=== PATIENT | female | born 1985 | race American Indian/Alaskan Native ===

== ENCOUNTER 2017-02-22 08:01 | Emergency (ER) | payer SELFPAY ==
[2017-02-22 08:19] VITALS: BP 121/84
[2017-02-22] MEDS ORDERED: MOTRIN PO ONE (10:40)
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
== END 2017-02-22 11:41 | disposition home or self-care (01) ==
LOC: ED 08:01
DX: M62.838 Other muscle spasm (principal); M25.511 Pain in right shoulder; V49.40XA Driver injured in collision with unspecified motor vehicles in traffic accident, initial encounter; Y93.89 Activity, other specified; Y99.8 Other external cause status; Y92.89 Other specified places as the place of occurrence of the external cause
CPT/HCPCS: 99284

== ENCOUNTER 2017-04-15 07:35 | Emergency (ER) | payer SELFPAY ==
[2017-04-15 08:23] LABS: Hematocrit 34.6 % (30.3-42.9); Hemoglobin 11.3 gm/dl (10.1-14.3); Mean Corpuscular HGB Conc 33 % (30-34); Mean Corpuscular Hemoglobin 28 pg (28-32); Mean Corpuscular Volume 86 fl (79-97); Platelet Count 235 K/mm3 (140-440); Red Blood Count 4.02 M/mm3 (3.65-5.03); White Blood Count 6.3 K/mm3 (4.5-11.0)
[2017-04-15 08:39] LABS: Alanine Aminotransferase 10 units/L (7-56); Albumin 3.9 g/dL (3.9-5); Albumin/Globulin Ratio 1.2 %; Alkaline Phosphatase 98 units/L (35-129); Anion Gap 17 mmol/L; BUN/Creatinine Ratio 14.28; Blood Urea Nitrogen 10 mg/dL (7-17); Carbon Dioxide 23 mmol/L (22-30); Chloride 101.7 mmol/L (98-107); Glucose 88 mg/dL (65-100); Lipase 29 units/L (13-60); Potassium 3.6 mmol/L (3.6-5.0); Sodium 138 mmol/L (137-145); Total Protein 7.2 g/dL (6.3-8.2)
[2017-04-15 09:15] LABS: Blastocytes % (Manual) 0 %
[2017-04-15 09:16] LABS: Basophils % (Manual) 0 % (0.0-1.8); Diff Status Complete; RBC Morphology Normal
[2017-04-15 13:34] LABS: Bacteria,Urine 2+ /HPF (Negative); Bilirubin,Urine NEG (Negative); Blood,Urine NEG (Negative); Ketones,Urine NEG (Negative); Leukocyte Esterase,Urine LG (Negative); Mucus,Urine 1+ /HPF; Nitrite,Urine NEG (Negative); Protein,Urine <15 mg/dL mg/dL (Negative); Urobilinogen,Urine < 2.0 mg/dL (<2.0)
[2017-04-15 14:29] VITALS: BP 109/62
[2017-04-15] MEDS ORDERED: TORADOL IM ONE (16:44)
--- NOTE | 2017-04-15 16:45 | Emergency Department Report ---
ED General Adult HPI - General Chief complaint: Abdominal Pain Stated complaint: BURNING PAIN IN STOMACH/DIZZY Time Seen by Provider: 04/15/17 16:25 Source: patient, RN notes reviewed Mode of arrival: Ambulatory Limitations: No Limitations - History of Present Illness Initial comments: This is a 32-year-old female. She is previously unknown to me. She has no chronic medical conditions. No history of surgeries. The patient presents to the ER with 2 complaints. The patient's first complaint is abdominal burning. The abdominal burning pain is located in the suprapubic and left lower quadrant region. There is no vomiting. There is mild nausea. There is no right lower quadrant pain. The pain has been present for 2 weeks. It is intermittent. Has no exacerbating or relieving factors, with the exception of palpation, which the patient reports makes it worse. She indicates no vaginal discharge, indicates that she is not . There is no leg pain. There is no leg swelling. No recent trips greater than 4 hours. No recent Hospital patient. Does not take control tablets. The patient also complains to dizziness. The dizziness has been present for weeks. It typically comes when she wakes up. She reports that when she wakes up, she sits up quite quickly, and then feels like the room is spinning around. There is no loss of vision. There is no slurred speech. There is no extremity weakness. There is no extremity numbness. This dizziness sensation is intermittent. -: Gradual Location: abdomen Severity scale (0 -10): 8 Consistency: intermittent Improves with: other (per hpi) Worsens with: other (per hpi) Associated Symptoms: other (per hpi) - Related Data Allergies Allergy/AdvReac Type Severity Reaction Status Date / Time No Known Allergies Allergy Verified 02/22/17 08:15 ED Review of Systems ROS: Stated complaint: BURNING PAIN IN STOMACH/DIZZY Other details as noted in HPI Constitutional: denies: fever Eyes: denies: vision change ENT: denies: throat pain, epistaxis, congestion Respiratory: denies: cough Cardiovascular: denies: chest pain Gastrointestinal: abdominal pain Genitourinary: as per HPI Musculoskeletal: as per HPI Skin: as per HPI Neurological: as per HPI Psychiatric: as per HPI ED Past Medical Hx - Past Medical History Previous Medical History?: No Hx Hypertension: No Hx Diabetes: No Hx Deep Vein Thrombosis: No Hx Renal Disease: No Hx Sickle Cell Disease: No Hx Seizures: No Hx Asthma: No Hx HIV: No - Surgical History Past Surgical History?: No - Social History Smoking Status: Never Smoker Substance Use Type: None ED Physical Exam - General Limitations: No Limitations General appearance: alert, in no apparent distress - Head Head exam: Present: atraumatic, normocephalic - Eye Eye exam: Present: normal appearance, PERRL, EOMI, other (visual acuity intact to finger counting, color perception, reading at a close distance). Absent: nystagmus - ENT ENT exam: Present: normal exam, normal orophraynx, mucous membranes moist, normal external ear exam - Neck Neck exam: Present: normal inspection, full ROM. Absent: tenderness, meningismus - Respiratory Respiratory exam: Present: normal lung sounds bilaterally. Absent: respiratory distress, wheezes, rales, rhonchi, stridor, chest wall tenderness, accessory muscle use, decreased breath sounds, prolonged expiratory - Cardiovascular Cardiovascular Exam: Present: regular rate, normal rhythm, normal heart sounds. Absent: bradycardia, tachycardia, irregular rhythm, systolic murmur, diastolic murmur, rubs, gallop - GI/Abdominal GI/Abdominal exam: Present: soft, tenderness, normal bowel sounds, other (there is minimal left lower quadrant tenderness. There is no rebound, guarding or peritoneal signs.). Absent: distended, guarding, rebound, rigid, pulsatile mass - Extremities Exam Extremities exam: Present: normal inspection, full ROM, normal capillary refill. Absent: tenderness, pedal edema, joint swelling, calf tenderness - Back Exam Back exam: Present: normal inspection, full ROM. Absent: tenderness, CVA tenderness (R), CVA tenderness (L), muscle spasm, paraspinal tenderness, vertebral tenderness - Neurological Exam Neurological exam: Present: alert (visual acuity intact to finger counting, color perception, reading at a close distance), oriented X3, normal gait ( normal gait, normal tandem gait, negative pronator drift, no pass pointing, normal [id number]), other (Extraocular movements intact. Tongue midline. No facial droop. Facial sensation intact to light touch in the V1, V2, V3 distribution bilaterally. 5 and 5 strength in 4 extremities.. Sensation is intact to light touch in 4 extremities.). Absent: motor sensory deficit - Psychiatric Psychiatric exam: Present: normal affect, normal mood - Skin Skin exam: Present: warm, dry, intact, normal color. Absent: rash ED Course Vital Signs 04/15/17 04/15/17 08:03 14:28 Temperature 98.1 F Pulse Rate 86 72 Respiratory 16 16 Rate Blood Pressure 125/80 Blood Pressure 125/80 109/62 [Right] O2 Sat by Pulse 100 99 Oximetry - Reevaluation(s) Reevaluation #1: 04/15/17 17:43 differential diagnosis: Ovarian cysts, constipation, orthostasis , vagal event, conduction defect Assessment and plan: 32-year-old female with 2 complaints. Minimally tender in the left lower quadrant afebrile, reassuring vital signs, no right lower quadrant pain. Not . Laboratory studies unremarkable. I recommended a gynecologic examination. Patient walks in the steady gait, GCS of 15, NIH score of 0, no pulmonary and lesser DVT risk factors, low risk by well's criteria, perc negative. I recommended an EKG. The patient eloped from the ER prior to the completion of her evaluation. she was called, nobody answered. 04/15/17 17:44 ED Medical Decision Making - Lab Data Result diagrams: 04/15/17 08:09 04/15/17 08:09 Vital Signs 04/15/17 04/15/17 08:03 14:28 Temperature 98.1 F Pulse Rate 86 72 Respiratory 16 16 Rate Blood Pressure 125/80 Blood Pressure 125/80 109/62 [Right] O2 Sat by Pulse 100 99 Oximetry Labs 04/15/17 04/15/17 04/15/17 08:09 08:09 13:19 WBC 6.3 RBC 4.02 Hgb 11.3 Hct 34.6 MCV 86 MCH 28 MCHC 33 RDW 16.0 H Plt Count 235 Add Manual Diff Complete Total Counted 100 Seg Neutrophils % Stamping Bench Die Maker Seg Neuts % (Manual) 31.0 L Band Neutrophils % 0 Lymphocytes % (Manual) 63.0 H Reactive Lymphs % (Man) 0 Monocytes % (Manual) 5.0 Eosinophils % (Manual) 1.0 Basophils % (Manual) 0 Metamyelocytes % 0 Myelocytes % 0 Promyelocytes % 0 Blast Cells % 0 Nucleated RBC % Not Reportable Seg Neutrophils # Man 2.0 Band Neutrophils # 0.0 Lymphocytes # (Manual) 4.0 Abs React Lymphs (Man) 0.0 Monocytes # (Manual) 0.3 Eosinophils # (Manual) 0.1 Basophils # (Manual) 0.0 Metamyelocytes # 0.0 Myelocytes # 0.0 Promyelocytes # 0.0 Blast Cells # 0.0 WBC Morphology Not Reportable Hypersegmented Neuts Not Reportable Hyposegmented Neuts Not Reportable Hypogranular Neuts Not Reportable Smudge Cells Not Reportable Toxic Granulation Not Reportable Toxic Vacuolation Not Reportable Dohle Bodies Not Reportable Pelger-Huet Anomaly Not Reportable Enmanuel Rods Not Reportable Platelet Estimate Appears normal Clumped Platelets Not Reportable Plt Clumps, EDTA Not Reportable Large Platelets Not Reportable Giant Platelets Not Reportable Platelet Satelliting Not Reportable Plt Morphology Comment Not Reportable RBC Morphology Normal Dimorphic RBCs Not Reportable Polychromasia Not Reportable Hypochromasia Not Reportable Poikilocytosis Not Reportable Anisocytosis Not Reportable Microcytosis Not Reportable Macrocytosis Not Reportable Spherocytes Not Reportable Pappenheimer Bodies Not Reportable Sickle Cells Not Reportable Target Cells Not Reportable Tear Drop Cells Not Reportable Ovalocytes Not Reportable Helmet Cells Not Reportable [place] Bodies Not Reportable [place] Rings Not Reportable [place] Cells Not Reportable Bite Cells Not Reportable Crenated Cell Not Reportable Elliptocytes Not Reportable Acanthocytes (Spur) Not Reportable Rouleaux Not Reportable Hemoglobin C Crystals Not Reportable Schistocytes Not Reportable Malaria parasites Not Reportable Yuriy Bodies Not Reportable Hem Pathologist Commnt No Sodium 138 Potassium 3.6 Chloride 101.7 Carbon Dioxide 23 Anion Gap 17 BUN 10 Creatinine 0.7 Estimated GFR > 60 BUN/Creatinine Ratio 14.28 Glucose 88 Calcium 9.0 Total Bilirubin 0.20 AST 15 ALT 10 Alkaline Phosphatase 98 Total Protein 7.2 Albumin 3.9 Albumin/Globulin Ratio 1.2 Lipase 29 Urine Color Yellow Urine Turbidity Cloudy Urine pH 5.0 Ur Specific [place] 1.017 Urine Protein <15 mg/dl Urine Glucose (UA) Neg Urine Ketones Neg Urine Blood Neg Urine Nitrite Neg Ur Reducing Substances Not Reportable Urine Bilirubin Neg Urine Ictotest Not Reportable Urine Urobilinogen < 2.0 Ur Leukocyte Esterase Lg Urine WBC (Auto) 2.0 Urine RBC (Auto) 3.0 U Epithel Cells (Auto) 20.0 H Urine Bacteria (Auto) 2+ Urine Mucus 1+ Urine HCG, Qual Negative Critical care attestation.: If time is entered above; I have spent that time in minutes in the direct care of this critically ill patient, excluding procedure time. ED Disposition Clinical Impression: Abdominal pain Disposition: ELOPED Is pt being admited?: No Does the pt Need Aspirin: No Condition: Undetermined Instructions: Abdominal Pain (ED) Referrals: PRIMARY CARE, [Primary Care Provider] - 3-5 Days
== END 2017-04-15 16:30 | disposition left against medical advice (07) ==
LOC: ED 07:35
DX: R10.9 Unspecified abdominal pain (principal)
CPT/HCPCS: 36415; 80053; 81001; 81025; 83690; 85007; 85025; 99284

== ENCOUNTER 2018-01-27 07:21 | Emergency (ER) | payer MEDICAID ==
[2018-01-27 08:32] LABS: Basophils % (Auto) 0.7 % (0.0-1.8); Eosinophils % (Auto) 0.6 % (0.0-4.3); Hematocrit 33.7 % (30.3-42.9); Hemoglobin 11.5 gm/dl (10.1-14.3); Lymphocytes # (Auto) 1.7 K/mm3 (1.2-5.4); Lymphocytes % (Auto) 26.4 % (13.4-35.0); Mean Corpuscular HGB Conc 34 % (30-34); Mean Corpuscular Hemoglobin 31 pg (28-32); Mean Corpuscular Volume 91 fl (79-97); Monocytes # (Auto) 0.6 K/mm3 (0.0-0.8); Monocytes % (Auto) 9.3 % (0.0-7.3); Platelet Count 244 K/mm3 (140-440); Red Blood Count 3.72 M/mm3 (3.65-5.03); Red Cell Distribution Width 14.7 % (13.2-15.2)
[2018-01-27 08:44] LABS: Alanine Aminotransferase 7 units/L (7-56); Albumin 3.9 g/dL (3.9-5); BUN/Creatinine Ratio 12; Blood Urea Nitrogen 7 mg/dL (7-17); Calcium 9.5 mg/dL (8.4-10.2); Hemolysis Index 7; Lipase 34 units/L (13-60)
[2018-01-27 10:21] VITALS: BP 118/71
[2018-01-27] MEDS ORDERED: TYLENOL PO ONE (10:26)
[2018-01-27] MEDS ORDERED: ZOFRAN ODT PO ONE (11:25)
--- NOTE | 2018-01-27 11:28 | Ultrasound Report ---
ULTRASOUND OB LESS THAN 14 WEEKS FETUS ULTRASOUND OB TRANSVAGINAL HISTORY: Abdominal pain after fall, pain during . COMPARISON: None. TECHNIQUE: Transabdominal and transvaginal ultrasound with color doppler interrogation. FINDINGS: Uterus: The uterus measures 12 x 9 x 8 cm. No uterine fibroid disease is appreciated. The cervix is unremarkable. Endometrium: An intrauterine is identified with heart rate measuring 159 beats per minute. [place]-rump length measures 64 mm which correlates with a 12 week, 5 day . The placenta appears to be forming posteriorly. Small placental venous [place] is noted. No evidence for abruption or subchorionic process. Right ovary: 3.5 x 2.1 x 3.2 cm. No abnormality. Left ovary: 3.4 x 1.7 x 3.0 cm. No abnormality. No pelvic fluid or mass is identified. Normal color doppler interrogation. IMPRESSION: Viable, single intrauterine as described. No acute abnormality is detected.
--- NOTE | 2018-01-27 11:57 | Emergency Department Report ---
HPI - General Chief Complaint: Abdominal Pain Time Seen by Provider: 01/27/18 10:25 - HPI HPI: The patient is a 32-year-old female , EGA 12 weeks, who presents for evaluation of abdominal pain. The patient states that she fell down 3-4 steps after getting out of bed this morning at 5:30 AM. Since she has experienced mild to moderate cramping lower abdominal pain, worse with movement, improved at rest. The patient denies fever, chills, night sweats, headache, neck pain, chest pain, dyspnea, back pain, diarrhea, dysuria, hematuria, flank pain, vaginal bleeding, genital discharge, leakage of fluid from the vagina. She shares that she received a RhoGAM injection 2 weeks ago. ED Past Medical Hx - Past Medical History Previous Medical History?: No Hx Hypertension: No Hx Diabetes: No Hx Deep Vein Thrombosis: No Hx Renal Disease: No Hx Sickle Cell Disease: No Hx Seizures: No Hx Asthma: No Hx HIV: No - Surgical History Past Surgical History?: No - Social History Smoking Status: Never Smoker Substance Use Type: None - Medications Home Medications: Home Medications Medication Instructions Recorded Confirmed Last Taken Type Acetaminophen [Tylenol] 1,000 mg PO Q6HR #20 tablet 01/27/18 Unknown Rx Pnv No.95/Ferrous Fum/Folic AC 1 each PO QDAY #31 tablet 01/27/18 Unknown Rx [ Vitamin Tablet] ED Review of Systems ROS: Stated complaint: DIZZY SPELL Other details as noted in HPI Constitutional: denies: fever ENT: denies: throat or neck pain Respiratory: denies: cough, shortness of breath Cardiovascular: denies: chest pain Endocrine: denies unexplained weight loss or gain Gastrointestinal: reports: abdominal pain, nausea Genitourinary: denies: dysuria Musculoskeletal: denies: leg swelling Skin: denies: rash Neurological: denies: headache Hematological/Lymphatic: denies: easy bleeding or easy bruising Psych: denies sadness or hopelessness Physical Exam - Physical Exam Vital Signs: Vital Signs 01/27/18 01/27/18 01/27/18 08:07 09:58 10:16 Temperature 98.5 F Pulse Rate 66 72 Respiratory 16 16 18 Rate Blood Pressure 119/64 Blood Pressure 118/71 [Right] O2 Sat by Pulse 100 100 97 Oximetry Physical Exam: General: well-nourished, well-developed, no acute distress Head: Normocephalic, atraumatic Eyes: normal sclera ENT: Mucous membranes are pink and moist Neck: trachea midline, neck supple, No neck stiffness, no cervical adenopathy Respiratory: Breath sounds equal bilaterally, no wheezing, rales, or rhonchi Cardio: S1 and S2 present, no murmurs, rubs, gallops, capillary refill is brisk Abdomen: Normoactive bowel sounds, soft abdomen, suprapubic tenderness present, no rigidity, no guarding or rebound tenderness Musc: No pitting edema Skin: No rash Neuro: no facial drooping, normal speech Psych: Normal affect ED Course Vital Signs 01/27/18 01/27/18 01/27/18 08:07 09:58 10:16 Temperature 98.5 F Pulse Rate 66 72 Respiratory 16 16 18 Rate Blood Pressure 119/64 Blood Pressure 118/71 [Right] O2 Sat by Pulse 100 100 97 Oximetry ED Medical Decision Making - Lab Data Result diagrams: 01/27/18 08:18 01/27/18 08:18 - Medical Decision Making The patient was seen and examined by myself. The patient is placed on a patient monitor and continuous pulse ox. On initial evaluation, the patient was found to be in no distress. Evaluation orders are placed. The patient is given a tablet of Tylenol for her pain. Lab results were non-concerning including WBC, hemoglobin, hematocrit, renal function, LFTs, lipase, and urinalysis. Her son of the pelvis reveals a live intrauterine at 12 weeks and 5 days with normal heart rate. The patient was reevaluated and reported that their symptoms were markedly improved. The patient is stable for discharge with outpatient follow-up. The patient is given follow-up and return instructions. The patient expressed understanding and agreed with the plan. The patient is discharged in stable condition. Critical care attestation.: If time is entered above; I have spent that time in minutes in the direct care of this critically ill patient, excluding procedure time. ED Disposition Clinical Impression: Abdominal pain during in second trimester, Acute bilateral lower abdominal pain Disposition: TO HOME OR SELFCARE Is pt being admited?: No Does the pt Need Aspirin: No Condition: Stable Instructions: Abdominal Pain (ED), Abdominal Pain in (ED) Prescriptions: Acetaminophen [Tylenol] 1,000 mg PO Q6HR #20 tablet Pnv No.95/Ferrous Fum/Folic AC [ Vitamin Tablet] 1 each PO QDAY #31 tablet Referrals: [facility] [Provider Group] - 3-5 Days PRIMARY CARE, [Primary Care Provider] - 3-5 Days Time of Disposition: 11:57
== END 2018-01-27 13:42 | disposition home or self-care (01) ==
LOC: ED 07:21
DX: O26.891 Other specified pregnancy related conditions, first trimester (principal); R10.31 Right lower quadrant pain; R10.32 Left lower quadrant pain; Z3A.12 12 weeks gestation of pregnancy
CPT/HCPCS: 36415; 76801; 76817; 80053; 83690; 84702; 85025; 85461; 86850; 86870; 86900; 86901; 99284; Q0162

== ENCOUNTER 2018-03-18 11:17 | Outpatient (CLI) | payer MEDICAID ==
[2018-03-18] MEDS ORDERED: LACTATED RINGERS 1,000 ML IV ONE (11:49)
[2018-03-18 12:54] LABS: Bilirubin,Urine NEG (Negative); Blood,Urine NEG (Negative); Color,Urine Yellow (Yellow); Mucus,Urine FEW /HPF; Protein,Urine <15 mg/dL mg/dL (Negative); Urobilinogen,Urine < 2.0 mg/dL (<2.0)
[2018-03-18 13:10] LABS: Basophils % (Auto) 0.5 % (0.0-1.8); Eosinophils % (Auto) 0.6 % (0.0-4.3); Hematocrit 34.7 % (30.3-42.9); Hemoglobin 12.1 gm/dl (10.1-14.3); Lymphocytes # (Auto) 1.4 K/mm3 (1.2-5.4); Lymphocytes % (Auto) 21.2 % (13.4-35.0); Mean Corpuscular HGB Conc 35 % (30-34); Mean Corpuscular Hemoglobin 32 pg (28-32); Mean Corpuscular Volume 92 fl (79-97); Monocytes # (Auto) 0.3 K/mm3 (0.0-0.8); Monocytes % (Auto) 5.2 % (0.0-7.3); Platelet Count 236 K/mm3 (140-440); Red Blood Count 3.77 M/mm3 (3.65-5.03); Red Cell Distribution Width 13.3 % (13.2-15.2)
[2018-03-18 13:33] LABS: Alanine Aminotransferase 7 units/L (7-56); Albumin 3.9 g/dL (3.9-5); BUN/Creatinine Ratio 12; Blood Urea Nitrogen 6 mg/dL (7-17); Calcium 9.2 mg/dL (8.4-10.2); Hemolysis Index 37
[2018-03-18 21:07] VITALS: BP 112/68
== END 2018-03-18 14:48 | disposition home or self-care (01) ==
LOC: TRG 11:17
PROVIDERS: ATTEND Obstetrics & Gynecology
DX: O47.02 False labor before 37 completed weeks of gestation, second trimester (principal); Z3A.20 20 weeks gestation of pregnancy
CPT/HCPCS: 36415; 59025; 80053; 81001; 85025; 96360; 96372; J7120

== ENCOUNTER 2018-04-22 22:03 | Outpatient (CLI) | payer MEDICAID ==
[2018-04-22 22:33] VITALS: BP 113/66
[2018-04-22] MEDS ORDERED: LACTATED RINGERS 500 ML IV ONE (22:52)
[2018-04-22 23:31] LABS: Bilirubin,Urine NEG (Negative); Blood,Urine NEG (Negative); Color,Urine Yellow (Yellow); Hyaline Casts,Urine 1 /LPF; Mucus,Urine 2+ /HPF; Protein,Urine <15 mg/dL mg/dL (Negative)
== END 2018-04-23 00:15 | disposition home or self-care (01) ==
LOC: TRG 22:03
PROVIDERS: ATTEND Obstetrics & Gynecology
DX: O47.02 False labor before 37 completed weeks of gestation, second trimester (principal); Z3A.25 25 weeks gestation of pregnancy
CPT/HCPCS: 81001; J7120

== ENCOUNTER 2018-05-11 10:13 | Outpatient (CLI) | payer MEDICAID | END 2018-05-11 10:14 | disposition home or self-care (01) | LOC: LAB 10:13 | PROVIDERS: ATTEND Obstetrics & Gynecology | DX: Z34.93 Encounter for supervision of normal pregnancy, unspecified, third trimester (principal); Z3A.28 28 weeks gestation of pregnancy; Z82.49 Family history of ischemic heart disease and other diseases of the circulatory system; Z83.3 Family history of diabetes mellitus | CPT/HCPCS: 86850; 86900; 86901 ==

== ENCOUNTER 2018-06-09 00:09 | Outpatient (CLI) | payer MEDICAID ==
[2018-06-09 00:30] VITALS: BP 119/59
[2018-06-09] MEDS ORDERED: LACTATED RINGERS 1,000 ML IV ONE (00:35)
== END 2018-06-09 01:03 | disposition home or self-care (01) ==
LOC: TRG 00:09
PROVIDERS: ATTEND Obstetrics & Gynecology
DX: O47.03 False labor before 37 completed weeks of gestation, third trimester (principal); Z3A.32 32 weeks gestation of pregnancy
CPT/HCPCS: 59025

== ENCOUNTER 2018-06-13 11:40 | Outpatient (CLI) | payer MEDICAID ==
[2018-06-13] MEDS ORDERED: LACTATED RINGERS 500 ML IV ONE (11:48)
[2018-06-13] MEDS ORDERED: ZOFRAN IV ONE (11:54)
[2018-06-13] MEDS ORDERED: LACTATED RINGERS 1,000 ML IV ONE (11:54)
--- NOTE | 2018-06-13 12:49 | Ultrasound Report ---
ULTRASOUND BIOPHYSICAL PROFILE: History: GEOVANNI, decreased movement Technique: Transabdominal ultrasound with Doppler interrogation. 2 - breathing movements 2 - movements 2 - posture and tone 2 - Qualitative amniotic fluid volume 8 - TOTAL SCORE OF POSSIBLE 8 Heart Rate (bpm) 147
--- NOTE | 2018-06-13 12:50 | Ultrasound Report ---
ULTRASOUND OB LIMITED History: GEOVANNI, decreased movement Technique: Transabdominal ultrasound with Doppler interrogation. Gestation: Single Position: Cephalic Amniotic Fluid: Normal GEOVANNI = 18.9 cm Heart Rate: 147 BPM
[2018-06-13 15:09] VITALS: BP 115/55
== END 2018-06-13 15:20 | disposition home or self-care (01) ==
LOC: TRG 11:40
PROVIDERS: ATTEND Obstetrics & Gynecology
DX: O47.03 False labor before 37 completed weeks of gestation, third trimester (principal); Z3A.32 32 weeks gestation of pregnancy
CPT/HCPCS: 59025; 76815; 76819; 85461; 86850; 86900; 86901; J2790

== ENCOUNTER 2018-07-11 14:08 | Outpatient (CLI) | payer MEDICAID ==
[2018-07-11 14:53] VITALS: BP 118/68
[2018-07-11] MEDS ORDERED: LACTATED RINGERS 500 ML IV ONE (15:02)
[2018-07-11] MEDS ORDERED: ZOFRAN IV ONE (15:04)
[2018-07-11 16:23] LABS: Color,Urine Yellow (Yellow)
[2018-07-11 16:24] LABS: Bilirubin,Urine Negative (Negative); Blood,Urine Negative (Negative); Protein,Urine <15 mg/dL mg/dL (Negative); Urobilinogen,Urine < 2.0 mg/dL (<2.0)
[2018-07-11 16:27] LABS: Mucus,Urine FEW /HPF
[2018-07-11 17:39] LABS: Hematocrit 29.4 % (30.3-42.9); Hemoglobin 9.9 gm/dl (10.1-14.3); Mean Corpuscular HGB Conc 34 % (30-34); Mean Corpuscular Hemoglobin 31 pg (28-32); Mean Corpuscular Volume 92 fl (79-97); Red Blood Count 3.19 M/mm3 (3.65-5.03); Red Cell Distribution Width 13.2 % (13.2-15.2)
[2018-07-11 17:44] LABS: Platelet Count 250 K/mm3 (140-440)
[2018-07-11 18:00] LABS: Alanine Aminotransferase 9 units/L (7-56); Albumin 3.6 g/dL (3.9-5); BUN/Creatinine Ratio 10; Blood Urea Nitrogen 5 mg/dL (7-17); Calcium 9.6 mg/dL (8.4-10.2); Hemolysis Index 23
[2018-07-11] MEDS ORDERED: PHENERGAN PR ONE (19:12)
--- NOTE | 2018-07-11 20:10 | Ultrasound Report ---
FINAL REPORT PROCEDURE: US ABDOMEN LIMITED TECHNIQUE: Real-time sonography was performed of the right upper quadrant with image documentation. CPT 39732 HISTORY: N/V COMPARISON: No prior studies are available for comparison. FINDINGS: Exam of the right upper quadrant is limited due to limited acoustic window due to the patient's ribs. There appears to be some reverberation artifact posterior aspect of the gallbladder. No definite gallstones or sludge visualized. Gallbladder wall is not thickened. Common bile duct is normal caliber measuring 2.8 millimeters. Intrahepatic ducts are not distended. Liver echogenicity appears normal. No masses are seen. Right kidney showed no abnormalities measuring 9.9 centimeters in length. Visualized portion of the pancreas showed no abnormalities. Proximal abdominal aorta appear normal. Mid and distal abdominal aorta was not visualized. Visualized portion of the inferior vena cava is unremarkable.. IMPRESSION: No abnormalities are identified
[2018-07-11 20:16] LABS: Eosinophils % (Manual) 0 % (0.0-4.3); Total Cells Counted 100
[2018-07-11 20:18] LABS: Large Platelets 1+
[2018-07-11 20:19] LABS: Anisocytosis 1+; Ovalocytes Rare; Platelet Estimate Consistent w Auto
[2018-07-11] MEDS ORDERED: REGLAN IV ONE (20:32)
[2018-07-11] MEDS ORDERED: LACTATED RINGERS 1,000 ML ONE (20:46)
== END 2018-07-11 21:35 | disposition home or self-care (01) ==
LOC: TRG 14:08
PROVIDERS: ATTEND Obstetrics & Gynecology
DX: O47.03 False labor before 37 completed weeks of gestation, third trimester (principal); Z3A.36 36 weeks gestation of pregnancy
CPT/HCPCS: 36415; 59025; 76705; 80053; 81001; 85007; 85025; 96360; 96361; 96374; 96375; J2405; J2765; J7120

== ENCOUNTER 2019-07-05 19:34 | Emergency (ER) | payer MEDICAID, OTHER ==
--- NOTE | 2019-07-05 20:07 | Event Note ---
ED Screening Note Date of service: 07/05/19 Time: 20:05 ED Screening Note: This is a 34 y.o. F. that presents to the ER with vaginal bleeding and abdominal pain s/p fall at work. Patient states she is 4 weeks LMP 05/31/2019, [id number] This initial assessment/diagnostic orders/clinical plan/treatment(s) is/are subject to change based on patients health status, clinical progression and re- assessment by fellow clinical providers in the ED. Further treatment and workup at subsequent clinical providers discretion. Patient/guardian urged not to elope from the ED as their condition may be serious if not clinically assessed and managed. Initial orders include: Labs and OB US
[2019-07-05 20:38] LABS: Hematocrit 30.6 % (30.3-42.9); Hemoglobin 10.6 gm/dl (10.1-14.3); Mean Corpuscular HGB Conc 35 % (30-34); Mean Corpuscular Volume 86 fl (79-97); Platelet Count 274 K/mm3 (140-440); Red Blood Count 3.55 M/mm3 (3.65-5.03); Red Cell Distribution Width 16.1 % (13.2-15.2)
[2019-07-05 20:51] LABS: Basophils # (Auto) 0.1 K/mm3 (0.0-0.1); Basophils % (Auto) 0.8 % (0.0-1.8); Eosinophils % (Auto) 0.7 % (0.0-4.3); Lymphocytes # (Auto) 2.3 K/mm3 (1.2-5.4); Lymphocytes % (Auto) 36.8 % (13.4-35.0); Monocytes # (Auto) 0.5 K/mm3 (0.0-0.8); Monocytes % (Auto) 8.3 % (0.0-7.3)
[2019-07-05 21:15] LABS: Bacteria,Urine 1+ /HPF (Negative); Bilirubin,Urine NEG (Negative); Blood,Urine LG (Negative); Color,Urine Yellow (Yellow); Mucus,Urine FEW /HPF
--- NOTE | 2019-07-05 23:04 | Emergency Department Report ---
ED Female HPI - General Stated complaint: FALL/4 WEEKS PREG/SPOTTING Time Seen by Provider: 07/05/19 20:04 Source: patient Mode of arrival: Ambulatory Limitations: No Limitations - History of Present Illness Initial comments: Patient is a 34-year-old female presents with today complaining of vaginal spotting that began today. Patient says she was at work she fell on the abdomen so she came in the 80s to be evaluated. She states last miss her period was 05/31/2019. Patient's states that she went [facility] office this to get her test which was positive. She denies abdominal pain, abdominal cramping, dysuria, vaginal discharge or any other symptoms MD Complaint: vaginal bleeding - Related Data Previous Rx's Medication Instructions Recorded Last Taken Type Ferrous Sulfate [Feosol 325 MG tab] 325 mg PO BID #60 tablet 07/22/18 Unknown Rx HYDROcodone/ACETAMINOPHEN [[place] 1 each PO Q6H PRN #20 tablet 07/22/18 Unknown Rx 5-325 Tablet] Ibuprofen [Motrin] 800 mg PO Q8HR PRN #30 tablet 07/22/18 Unknown Rx Nitrofurantoin [place]/M-Cryst 100 mg PO Q12HR #14 capsule 07/05/19 Unknown Rx [Macrobid CAP] Allergies Allergy/AdvReac Type Severity Reaction Status Date / Time No Known Allergies Allergy Verified 06/13/18 11:47 ED Review of Systems ROS: Stated complaint: FALL/4 WEEKS PREG/SPOTTING Other details as noted in HPI Comment: All other systems reviewed and negative ED Past Medical Hx - Past Medical History Previous Medical History?: No Hx Hypertension: No Hx Congestive Heart Failure: No Hx Diabetes: No Hx Deep Vein Thrombosis: No Hx Renal Disease: No Hx Sickle Cell Disease: No Hx Seizures: No Hx Asthma: No Hx COPD: No Hx HIV: No - Surgical History Past Surgical History?: No - Social History Smoking Status: Never Smoker Substance Use Type: None - Medications Home Medications: Home Medications Medication Instructions Recorded Confirmed Last Taken Type Ferrous Sulfate [Feosol 325 MG tab] 325 mg PO BID #60 tablet 07/22/18 Unknown Rx HYDROcodone/ACETAMINOPHEN [[place] 1 each PO Q6H PRN #20 tablet 07/22/18 Unknown Rx 5-325 Tablet] Ibuprofen [Motrin] 800 mg PO Q8HR PRN #30 tablet 07/22/18 Unknown Rx Nitrofurantoin [place]/M-Cryst 100 mg PO Q12HR #14 capsule 07/05/19 Unknown Rx [Macrobid CAP] ED Physical Exam - General Limitations: No Limitations General appearance: alert, in no apparent distress - Head Head exam: Present: atraumatic, normocephalic - Eye Eye exam: Present: normal appearance - ENT ENT exam: Present: mucous membranes moist - Neck Neck exam: Present: normal inspection - Respiratory Respiratory exam: Present: normal lung sounds bilaterally. Absent: respiratory distress - Cardiovascular Cardiovascular Exam: Present: regular rate, normal rhythm. Absent: systolic murmur, diastolic murmur, rubs, gallop - GI/Abdominal GI/Abdominal exam: Present: soft, normal bowel sounds - Extremities Exam Extremities exam: Present: normal inspection - Back Exam Back exam: Present: normal inspection - Neurological Exam Neurological exam: Present: alert, oriented X3 - Psychiatric Psychiatric exam: Present: normal affect, normal mood - Skin Skin exam: Present: warm, dry, intact, normal color. Absent: rash ED Medical Decision Making - Lab Data Result diagrams: 07/05/19 20:18 Laboratory Results - last 24 hr 07/05/19 07/05/19 07/05/19 20:18 20:18 20:18 WBC 5.9 RBC 3.55 L Hgb 10.6 Hct 30.6 MCV 86 MCH 30 MCHC 35 H RDW 16.1 H Plt Count 274 Lymph % (Auto) 36.8 H Ada % (Auto) 8.3 H Eos % (Auto) 0.7 Baso % (Auto) 0.8 Lymph # 2.3 Ada # 0.5 Eos # 0.0 Baso # 0.1 Seg Neutrophils % 53.4 Seg Neutrophils # 3.3 HCG, Qual Negative HCG, Quant 1.24 Urine Color Urine Turbidity Urine pH Ur Specific [place] Urine Protein Urine Glucose (UA) Urine Ketones Urine Blood Urine Nitrite Urine Bilirubin Urine Urobilinogen Ur Leukocyte Esterase Urine WBC (Auto) Urine RBC (Auto) U Epithel Cells (Auto) Urine Bacteria (Auto) Urine Mucus Blood Type 07/05/19 07/05/19 20:18 20:50 WBC RBC Hgb Hct MCV MCH MCHC RDW Plt Count Lymph % (Auto) Ada % (Auto) Eos % (Auto) Baso % (Auto) Lymph # Ada # Eos # Baso # Seg Neutrophils % Seg Neutrophils # HCG, Qual HCG, Quant Urine Color Yellow Urine Turbidity Cloudy Urine pH 6.0 Ur Specific [place] 1.029 Urine Protein 100 mg/dl Urine Glucose (UA) Neg Urine Ketones Neg Urine Blood Lg Urine Nitrite Neg Urine Bilirubin Neg Urine Urobilinogen 2.0 Ur Leukocyte Esterase Tr Urine WBC (Auto) 10.0 H Urine RBC (Auto) 64.0 U Epithel Cells (Auto) 17.0 H Urine Bacteria (Auto) 1+ Urine Mucus Few Blood Type B NEGATIVE - Radiology Data Radiology results: report reviewed - Medical Decision Making 34-year-old female who presents with a UTI. test was and beta Quant level was negative less than 2. I discussed his findings with the patient and discussed with her that her test was negative. I discussed with her that this may be her cycle, and the vaginal spotting. I discussed her to follow-up with [facility] within the week for further testing. Vital signs are normal patient is in no acute distress. Critical care attestation.: If time is entered above; I have spent that time in minutes in the direct care of this critically ill patient, excluding procedure time. ED Disposition Clinical Impression: UTI (urinary tract infection) Disposition: DC-01 TO HOME OR SELFCARE Is pt being admited?: No Does the pt Need Aspirin: No Condition: Stable Instructions: Urinary Tract Infection in Women (ED) Additional Instructions: Make sure to follow up with the primary care physician as discussed. Take all your medications as you've been prescribed. If you have any worsening symptoms or develop new symptoms please return to ED immediately. Prescriptions: Nitrofurantoin [place]/M-Cryst [Macrobid CAP] 100 mg PO Q12HR #14 capsule Referrals: EPI BORGES MD [Primary Care Provider] - 3-5 Days [facility] [Provider Group] - 3-5 Days Forms: Work/School Release Form(ED) Time of Disposition: 23:05
[2019-07-05 23:21] VITALS: BP 141/82
== END 2019-07-05 23:34 | disposition home or self-care (01) ==
LOC: ED 19:34
DX: N93.9 Abnormal uterine and vaginal bleeding, unspecified (principal); N39.0 Urinary tract infection, site not specified
CPT/HCPCS: 36415; 81001; 84702; 84703; 85025; 86900; 86901; 87086

== ENCOUNTER 2019-10-13 11:15 | Observation (INO) | payer MEDICAID ==
[2019-10-13] MEDS ORDERED: ONDANSETRON 4 MG/2 ML INJ IV PRN (12:06)
[2019-10-13] MEDS: METOCLOPRAMIDE 10 MG/2 ML INJ IV SCH ×2 (12:50→20:26)
[2019-10-13] MEDS: D5W/LACTATED RINGERS 1,000 ML IV SCH ×3 (12:51→20:26)
[2019-10-13] MEDS ORDERED: POTASSIUM CHLORIDE 10 MEQ 10 MEQ/100 ML BAG IV SCH (13:00)
[2019-10-13] MEDS: PROMETHAZINE 25 MG RECT SUPP PR SCH ×2 (13:54→20:26)
[2019-10-13 14:19] LABS: Basophils % (Auto) 0.5 % (0.0-1.8); Eosinophils % (Auto) 0.5 % (0.0-4.3); Hematocrit 29.1 % (30.3-42.9); Hemoglobin 9.9 gm/dl (10.1-14.3); Lymphocytes # (Auto) 1.5 K/mm3 (1.2-5.4); Lymphocytes % (Auto) 34.7 % (13.4-35.0); Mean Corpuscular HGB Conc 34 % (30-34); Mean Corpuscular Volume 86 fl (79-97); Monocytes # (Auto) 0.3 K/mm3 (0.0-0.8); Monocytes % (Auto) 7.2 % (0.0-7.3); Platelet Count 241 K/mm3 (140-440); Red Blood Count 3.38 M/mm3 (3.65-5.03); Red Cell Distribution Width 16.4 % (13.2-15.2)
[2019-10-13 14:42] LABS: BUN/Creatinine Ratio 13; Blood Urea Nitrogen 8 mg/dL (7-17); Hemolysis Index 0
[2019-10-13 15:11] LABS: Hepatitis B Surface Antigen Non-Reactive (Negative); Hepatitis C Virus Antibody Non-Reactive (NonReactive)
--- NOTE | 2019-10-13 16:04 | Ultrasound Report ---
OB ultrasound FINDINGS: There is a viable intrauterine with crown-rump length measurements corresponding to an MA of 9 weeks 5 days for an EDC of 05/12/2020. This correlates with the clinical dates. he art rate is 181 bpm. Gestational sac appears normal. There is no subchorionic hemorrhage. Right ovary is not seen. Left ovary contains a complex cyst measuring 1.5 x 1.3 x 1.2 cm. No free fluid or hemor rhage. Uterus is heterogeneous perhaps due to fibroids. IMPRESSION: Viable 9 week 5 day IUP Signer Name: Benito Claudio MD Signed: 10/13/2019 3:59 PM Workstation Name: [id number]
--- NOTE | 2019-10-13 20:15 | History and Physical Report ---
History of Present Illness Date of examination: 10/13/19 Date of admission: 10/13/19 11:45 Chief complaint: nausea, vomiting, inability to tolerate water History of present illness: Pt is a 34 year old -[place] female EDUARDO 05/09/20 at 10w1d who presents with lisa loss and persistent nausea and vomiting for the past week with inability to tolerate water. She recently initiated care at [facility]. Past History Past Medical History: hematologic disorders (anemia , Rh Negative ), other Past Surgical History: no surgical history [employer] History: abnormal PAP smear (HPV ), herpes Social history: no significant social history - Obstetrical History Expected Date of Delivery: 05/09/20 Actual Gestation: 10 Week(s) 1 Day(s) : 3 Para: 2 Hx # Term Pregnancies: 2 Number of Pregnancies: 0 Spontaneous Abortions: 0 Induced : 0 Number of Living Children: 2 Medications and Allergies Allergies Allergy/AdvReac Type Severity Reaction Status Date / Time No Known Allergies Allergy Verified 06/13/18 11:47 Home Medications Medication Instructions Recorded Confirmed Last Taken Type Ferrous Sulfate [Feosol 325 MG tab] 325 mg PO BID #60 tablet 07/22/18 Unknown Rx HYDROcodone/ACETAMINOPHEN [[place] 1 each PO Q6H PRN #20 tablet 07/22/18 Unknown Rx 5-325 Tablet] Ibuprofen [Motrin] 800 mg PO Q8HR PRN #30 tablet 07/22/18 Unknown Rx Nitrofurantoin [place]/M-Cryst 100 mg PO Q12HR #14 capsule 07/05/19 Unknown Rx [Macrobid CAP] Active Meds: Active Medications Dextrose/Lactated Ringer's (D5lr) 1,000 mls @ 500 mls/hr IV DIRECT MERARI Stop: 10/14/19 14:59 Last Admin: 10/13/19 14:32 Dose: 500 mls/hr Documented by: Dextrose/Lactated Ringer's (D5lr) 1,000 mls @ 150 mls/hr IV DIRECT MERARI Metoclopramide HCl (Reglan) 10 mg IV Q6H MERARI Last Admin: 10/13/19 12:50 Dose: 10 mg Documented by: Multivitamins/Iron/Calcium ( Vitamin) 1 each PO QDAY MERARI Ondansetron HCl (Zofran) 4 mg IV Q6H PRN PRN Reason: N/V unrelieved by Reglan Last Admin: 10/13/19 14:57 Dose: 4 mg Documented by: Promethazine HCl (Phenergan) 25 mg FL Q6H [facility] Last Admin: 10/13/19 13:54 Dose: Not Given Documented by: Review of Systems All systems: negative (per HPI) - Vital Signs Vital signs: Vital Signs Temp Pulse Resp BP Pulse Ox 98.8 F 74 18 114/63 100 10/13/19 13:05 10/13/19 13:05 10/13/19 13:05 10/13/19 13:05 10/13/19 13:05 Temp Pulse Resp BP Pulse Ox 98.2 F 86 18 119/70 100 10/13/19 17:31 10/13/19 17:31 10/13/19 17:31 10/13/19 17:31 10/13/19 13:05 - Physical Exam Breasts: Positive: deferred Cardiovascular: Regular rate Lungs: Positive: Clear to auscultation Abdomen: Positive: soft Extremities: Positive: normal Results Result Diagrams: 10/13/19 13:48 10/13/19 13:48 Abnormal lab results 10/13/19 10/13/19 Range/Units 13:48 13:48 WBC 4.3 L (4.5-11.0) K/mm3 RBC 3.38 L (3.65-5.03) M/mm3 Hgb 9.9 L (10.1-14.3) gm/dl Hct 29.1 L (30.3-42.9) % RDW 16.4 H (13.2-15.2) % Sodium 136 L (137-145) mmol/L Carbon Dioxide 19 L (22-30) mmol/L Creatinine 0.6 L (0.7-1.2) mg/dL Glucose 125 H (65-100) mg/dL All other labs normal. Assessment and Plan A: IUP at 10w1d Hyperemesis Gravidarum Anemia Rh Negative P: Admit to antepartum service IV antiemetics IV fluids Advance diet as tolerated Viability ultrasound
[2019-10-14] MEDS: PROMETHAZINE 25 MG RECT SUPP PR SCH ×3 (01:00→16:16)
[2019-10-14] MEDS: METOCLOPRAMIDE 10 MG/2 ML INJ IV SCH ×3 (01:00→16:16)
[2019-10-14] MEDS: D5W/LACTATED RINGERS 1,000 ML IV SCH ×3 (08:05→23:28)
[2019-10-14] MEDS: PRENATAL VIT27-FE FUMARATE-FOLIC ACID VIT TAB PO SCH (08:05)
[2019-10-14] MEDS ORDERED: ONDANSETRON 4 MG ODT TAB PO PRN (18:27)
--- NOTE | 2019-10-14 18:30 | Progress Note ---
Assessment and Plan A: IUP at 10w2d Hyperemesis Gravidarum Anemia Rh Negative P: Wean IV antiemetics Trial of PO antiemetics Monitor clinical status Subjective - Subjective Date of service: 10/14/19 Principal diagnosis: Hyperemesis, IUP at 10 wks Interval history: Pt reports feeling much better today. She has tolerated grits and juice thus far. No obstetric complaints. Patient reports: no new complaints Objective - Vital Signs Vital Signs: Vital Signs - 12hr 10/14/19 10/14/19 10/14/19 07:33 13:23 16:24 Temperature 98.5 F 98.5 F 98.4 F Pulse Rate 77 85 77 Respiratory 18 18 18 Rate Blood Pressure 112/72 117/68 114/77 O2 Sat by Pulse 99 100 100 Oximetry - Exam Breasts: deferred Cardiovascular: Regular rate Lungs: Clear to auscultation Abdomen: Present: soft Extremities: normal - Labs Labs: Abnormal Labs 10/13/19 10/13/19 13:48 13:48 WBC 4.3 L RBC 3.38 L Hgb 9.9 L Hct 29.1 L RDW 16.4 H Sodium 136 L Carbon Dioxide 19 L Creatinine 0.6 L Glucose 125 H - Results US- obstetric: report reviewed
[2019-10-15] MEDS: PROMETHAZINE 25 MG RECT SUPP PR SCH (05:07)
[2019-10-15] MEDS: PRENATAL VIT27-FE FUMARATE-FOLIC ACID VIT TAB PO SCH (08:53)
[2019-10-15] MEDS ORDERED: ACETAMINOPHEN 325 MG TAB PO ONE (10:19)
--- NOTE | 2019-10-15 15:31 | Progress Note ---
Assessment and Plan A: IUP at 10w3d Hyperemesis Gravidarum tolerating diet on PO meds Anemia Rh Negative P: Discharge today with follow up this week in office. Subjective - Subjective Date of service: 10/15/19 Principal diagnosis: Hyperemesis, IUP at 10 wks Interval history: Pt reports feeling much better today. She is ready to go home. Patient reports: no new complaints Objective - Vital Signs Vital Signs: Vital Signs - 12hr 10/15/19 10/15/19 10/15/19 06:01 08:50 12:50 Temperature 98.7 F 98.4 F 98.8 F Pulse Rate 91 H 72 78 Respiratory 20 20 20 Rate Blood Pressure 115/65 Blood Pressure 140/70 117/66 [Right] O2 Sat by Pulse 97 Oximetry - Exam Breasts: deferred Cardiovascular: Regular rate Lungs: Clear to auscultation Abdomen: Present: soft Extremities: normal - Labs Labs: Abnormal Labs 10/13/19 10/13/19 13:48 13:48 WBC 4.3 L RBC 3.38 L Hgb 9.9 L Hct 29.1 L RDW 16.4 H Sodium 136 L Carbon Dioxide 19 L Creatinine 0.6 L Glucose 125 H
--- NOTE | 2019-10-15 15:42 | Discharge Summary ---
Providers - Providers Date of Admission: 10/13/19 11:45 Date of discharge: 10/15/19 Attending physician: DIVINE RENEE 10/13/19 12:07 Consult to Dietitian/Nutrition [CONS] Routine Physician Instructions: Reason For Exam: Reason for Consult: hyper grav Reason for Consult: hyperemesis [facility] Reason for admission: other (Hyperemesis, 10 wks ) Hospital course: Pt was admitted with hyperemesis for IV hydration and IV antiemetics. By hospital day#2, she was tolerating regular diet on oral Zofran. She will have close follow up in the office this week. Condition at discharge: Stable Disposition: DC-01 TO HOME OR SELFCARE - Discharge Diagnoses (1) Hyperemesis Status: Acute (2) Status: Acute Qualifiers: Weeks of gestation: 10 weeks Qualified Code(s): Z3A.10 - 10 weeks gestation of Plan - Discharge Medications Prescriptions: Ondansetron [Zofran ODT TAB] 8 mg PO Q12HR PRN #60 tab.rapdis PRN Reason: Nausea - Provider Discharge Summary Activity: routine Diet: routine Instructions: routine Additional instructions: [] Smoking cessation referral if applicable(refer to patient education folder for contact #) [] Refer to [facility] Booklet Call your doctor immediately for: * Fever > 100.5 * Heavy vaginal bleeding ( >1 pad per hour) * Severe persistent headache * Shortness of breath * Reddened, hot, painful area to leg or breast * Drainage or odor from incision. * Keep incision clean and dry at all times and follow doctor's instructions regarding bathing/showering - Follow up plan Follow up: DIVINE RENEE MD [Staff Physician] - 10/18/19 (Please call to schedule appt )
--- NOTE | 2019-10-15 16:37 | Discharge Summary ---
Providers - Providers Date of Admission: 10/13/19 11:45 Date of discharge: 10/15/19 Attending physician: DIVINE RENEE 10/13/19 12:07 Consult to Dietitian/Nutrition [CONS] Routine Physician Instructions: Reason For Exam: Reason for Consult: hyper grav Reason for Consult: hyperemesis Primary care physician: [facility] MD JULIENNE Hospitalization Reason for admission: other (hyperemesis ) Hospital course: Pt was admitted with hyperemesis. She received IV hydration, IV antiemetics, and then transitioned to PO antiemetics. She was able to tolerate regular diet by HD#2. She will follow up this week in the office. Condition at discharge: Stable Disposition: DC-01 TO HOME OR SELFCARE - Discharge Diagnoses (1) Hyperemesis Status: Acute (2) Status: Acute Qualifiers: Weeks of gestation: 10 weeks Qualified Code(s): Z3A.10 - 10 weeks gestation of Plan - Provider Discharge Summary Additional instructions: [] Smoking cessation referral if applicable(refer to patient education folder for contact #) [] Refer to [facility] Booklet Call your doctor immediately for: * Fever > 100.5 * Heavy vaginal bleeding ( >1 pad per hour) * Severe persistent headache * Shortness of breath * Reddened, hot, painful area to leg or breast * Drainage or odor from incision. * Keep incision clean and dry at all times and follow doctor's instructions regarding bathing/showering - Follow up plan Follow up: EPI BORGES MD [Primary Care Provider] - 7 Days
[2019-10-15 16:56] VITALS: BP 129/69
== END 2019-10-15 17:22 | disposition home or self-care (01) ==
LOC: 3A 11:15 → UNDOADMOB 11:15 → OB 11:45
PROVIDERS: ADMIT Obstetrics & Gynecology; ATTEND Obstetrics & Gynecology
DX: O21.0 Mild hyperemesis gravidarum (principal); O99.011 Anemia complicating pregnancy, first trimester; O36.0910 Maternal care for other rhesus isoimmunization, first trimester, not applicable or unspecified; D64.9 Anemia, unspecified; Z3A.10 10 weeks gestation of pregnancy
CPT/HCPCS: 36415; 76801; 80048; 80074; 82150; 83690; 84443; 85025; 96361; 96374; 96375; 96376; G0378; G0379; J2405; J2765; J3480; J7121; Q0162

== ENCOUNTER 2019-10-16 23:56 | Emergency (ER) | payer MEDICAID ==
[2019-10-17 00:32] VITALS: BP 142/71
--- NOTE | 2019-10-17 02:33 | Emergency Department Report ---
ED ENT HPI - General Chief complaint: Dental/Oral Stated complaint: TOOTHACHE Time Seen by Provider: 10/17/19 02:27 Source: patient Mode of arrival: Ambulatory Limitations: No Limitations - History of Present Illness Initial comments: 34-year-old -[place] female that reports she is 10 weeks comes in complaining of left-sided tooth pain as 10 out of 10 that started 3 hours prior to arrival. Patient denies any swelling no discharge no trauma to the mouth. Patient states she's taken Tylenol and ibuprofen with no relief of pain. MD complaint: tooth pain Onset/Timin -: hour(s) Location: tooth # (13) Severity: severe Severity scale (0 -10): 10 Consistency: constant Improves with: none Worsens with: none - Related Data Previous Rx's Medication Instructions Recorded Last Taken Type Ferrous Sulfate [Feosol 325 MG tab] 325 mg PO BID #60 tablet 07/22/18 Unknown Rx HYDROcodone/ACETAMINOPHEN [[place] 1 each PO Q6H PRN #20 tablet 07/22/18 Unknown Rx 5-325 Tablet] Ibuprofen [Motrin] 800 mg PO Q8HR PRN #30 tablet 07/22/18 Unknown Rx Nitrofurantoin [place]/M-Cryst 100 mg PO Q12HR #14 capsule 07/05/19 Unknown Rx [Macrobid CAP] Ondansetron [Zofran ODT TAB] 8 mg PO Q12HR PRN #60 tab.rapdis 10/15/19 Unknown Rx Allergies Allergy/AdvReac Type Severity Reaction Status Date / Time No Known Allergies Allergy Verified 06/13/18 11:47 ED Dental HPI - General Chief complaint: Dental/Oral Stated complaint: TOOTHACHE Time Seen by Provider: 10/17/19 02:27 Source: patient Mode of arrival: Ambulatory Limitations: No Limitations - Related Data Previous Rx's Medication Instructions Recorded Last Taken Type Ferrous Sulfate [Feosol 325 MG tab] 325 mg PO BID #60 tablet 07/22/18 Unknown Rx HYDROcodone/ACETAMINOPHEN [[place] 1 each PO Q6H PRN #20 tablet 07/22/18 Unknown Rx 5-325 Tablet] Ibuprofen [Motrin] 800 mg PO Q8HR PRN #30 tablet 07/22/18 Unknown Rx Nitrofurantoin [place]/M-Cryst 100 mg PO Q12HR #14 capsule 07/05/19 Unknown Rx [Macrobid CAP] Ondansetron [Zofran ODT TAB] 8 mg PO Q12HR PRN #60 tab.rapdis 10/15/19 Unknown Rx Allergies Allergy/AdvReac Type Severity Reaction Status Date / Time No Known Allergies Allergy Verified 06/13/18 11:47 ED Review of Systems ROS: Stated complaint: TOOTHACHE Other details as noted in HPI Comment: All other systems reviewed and negative ED Past Medical Hx - Past Medical History Previous Medical History?: Yes Hx Hypertension: No Hx Congestive Heart Failure: No Hx Diabetes: No Hx Deep Vein Thrombosis: No Hx Renal Disease: No Hx Sickle Cell Disease: No Hx Seizures: No Hx Asthma: No Hx COPD: No Hx HIV: No Additional medical history: 10 weeks - Surgical History Past Surgical History?: No - Social History Smoking Status: Never Smoker - Medications Home Medications: Home Medications Medication Instructions Recorded Confirmed Last Taken Type Ferrous Sulfate [Feosol 325 MG tab] 325 mg PO BID #60 tablet 07/22/18 Unknown Rx HYDROcodone/ACETAMINOPHEN [[place] 1 each PO Q6H PRN #20 tablet 07/22/18 Unknown Rx 5-325 Tablet] Ibuprofen [Motrin] 800 mg PO Q8HR PRN #30 tablet 07/22/18 Unknown Rx Nitrofurantoin [place]/M-Cryst 100 mg PO Q12HR #14 capsule 07/05/19 Unknown Rx [Macrobid CAP] Ondansetron [Zofran ODT TAB] 8 mg PO Q12HR PRN #60 tab.rapdis 10/15/19 Unknown Rx ED Physical Exam - General Limitations: No Limitations General appearance: alert, in no apparent distress - Head Head exam: Present: atraumatic, normocephalic - Eye Eye exam: Present: normal appearance - Expanded ENT Exam Expanded Teeth exam: Present: normal inspection. Absent: fractured tooth #, gingival enlargement - Neck Neck exam: Present: normal inspection ED Course Vital Signs 10/17/19 10/17/19 00:27 00:41 Temperature 99.0 F 99.0 F Pulse Rate 89 94 H Respiratory 18 18 Rate Blood Pressure 142/71 142/71 O2 Sat by Pulse 99 99 Oximetry Critical care attestation.: If time is entered above; I have spent that time in minutes in the direct care of this critically ill patient, excluding procedure time. ED Disposition Clinical Impression: Toothache Disposition: DC- TO HOME OR SELFCARE Is pt being admited?: No Does the pt Need Aspirin: No Condition: Stable Instructions: Toothache (ED) Additional Instructions: Continue with Tylenol
== END 2019-10-17 03:03 | disposition home or self-care (01) ==
LOC: ED 23:56
DX: K08.89 Other specified disorders of teeth and supporting structures (principal); Z3A.10 10 weeks gestation of pregnancy; Z79.1 Long term (current) use of non-steroidal anti-inflammatories (NSAID); Z79.899 Other long term (current) drug therapy
CPT/HCPCS: 99282

== ENCOUNTER 2020-04-11 10:48 | Outpatient (CLI) | payer MEDICAID | END 2020-04-11 10:49 | disposition home or self-care (01) | LOC: LAB 10:48 | PROVIDERS: ATTEND Obstetrics & Gynecology | DX: Z29.13 Encounter for prophylactic Rho(D) immune globulin (principal); Z3A.35 35 weeks gestation of pregnancy | CPT/HCPCS: 86850; 86900; 86901 ==

== ENCOUNTER 2020-04-26 21:23 | Outpatient (CLI) | payer MEDICAID ==
[2020-04-26 22:02] VITALS: BP 118/72
[2020-04-26] MEDS ORDERED: ONDANSETRON 4 MG/2 ML INJ IM ONE (23:04)
[2020-04-27] MEDS ORDERED: LACTATED RINGERS 1,000 ML IV ONE (00:17)
[2020-04-27] MEDS ORDERED: METOCLOPRAMIDE 10 MG/2 ML INJ IV ONE (00:17)
[2020-04-27 00:54] LABS: Basophils % (Auto) 0.5 % (0.0-1.8); Eosinophils % (Auto) 0.3 % (0.0-4.3); Hematocrit 25.2 % (30.3-42.9); Hemoglobin 8.5 gm/dl (10.1-14.3); Lymphocytes # (Auto) 2.2 K/mm3 (1.2-5.4); Mean Corpuscular HGB Conc 34 % (30-34); Mean Corpuscular Volume 86 fl (79-97); Monocytes # (Auto) 0.6 K/mm3 (0.0-0.8); Monocytes % (Auto) 7.3 % (0.0-7.3); Platelet Count 282 K/mm3 (140-440); Red Blood Count 2.93 M/mm3 (3.65-5.03); Red Cell Distribution Width 14.8 % (13.2-15.2)
[2020-04-27 01:20] LABS: Albumin 3.5 g/dL (3.9-5); BUN/Creatinine Ratio 10; Blood Urea Nitrogen 6 mg/dL (7-17); Calcium 8.7 mg/dL (8.4-10.2); Hemolysis Index 3
[2020-04-27 01:24] LABS: Alanine Aminotransferase < 5 units/L (7-56)
== END 2020-04-27 01:35 | disposition home or self-care (01) ==
LOC: TRG 21:23 → APU 21:37 → TRG 04-27 01:35
PROVIDERS: ATTEND Obstetrics & Gynecology
DX: O36.8130 Decreased fetal movements, third trimester, not applicable or unspecified (principal); O21.2 Late vomiting of pregnancy; Z3A.37 37 weeks gestation of pregnancy
CPT/HCPCS: 36415; 59025; 76815; 76819; 80053; 82150; 83690; 85025; 96361; 96372; 96374; J2405; J2765; J7120; 96360

== ENCOUNTER 2020-04-27 08:30 | Inpatient (IN) | payer MEDICAID ==
[2020-04-27] MEDS ORDERED: LIDOCAINE (2%) 20 MG/1 ML VIAL 20 ML MDV INFILTRATI ONE ×2 (09:27→20:56)
[2020-04-27] MEDS ORDERED: ePHEDrine SULFATE 50 MG/1 ML INJ IV PRN (09:27)
[2020-04-27] MEDS ORDERED: fentaNYL 100 MCG/2 ML INJ IV PRN (09:27)
[2020-04-27] MEDS ORDERED: MINERAL OIL 30 ML ORAL LIQD PO PRN (09:27)
[2020-04-27] MEDS ORDERED: NALOXONE 0.4 MG/1 ML INJ IV PRN (09:27)
[2020-04-27] MEDS ORDERED: ONDANSETRON 4 MG/2 ML INJ IV PRN (09:27)
[2020-04-27] MEDS ORDERED: TERBUTALINE 1 MG/1 ML INJ SUB-Q PRN (09:27)
[2020-04-27] MEDS ORDERED: TERBUTALINE 1 MG/1 ML INJ IVP PRN (09:27)
[2020-04-27] MEDS ORDERED: BUTORPHANOL 2 MG/1 ML INJ IV PRN (09:27)
[2020-04-27] MEDS ORDERED: miSOPROStol 25 MCG TAB VG SCH (10:00)
[2020-04-27] MEDS ORDERED: OXYTOCIN 20 UNIT/1000ML DRIP 20 UNITS/1,000 ML BAG IV SCH (10:00)
[2020-04-27] MEDS ORDERED: OXYTOCIN DRIP 30 UNITS/500 ML BAG IV SCH ×2 (10:00)
[2020-04-27] MEDS: LACTATED RINGERS 1,000 ML IV SCH ×3 (10:23→18:34)
[2020-04-27 11:27] LABS: Hematocrit 25.2 % (30.3-42.9); Hemoglobin 8.4 gm/dl (10.1-14.3); Mean Corpuscular HGB Conc 33 % (30-34); Mean Corpuscular Volume 86 fl (79-97); Platelet Count 268 K/mm3 (140-440); Red Blood Count 2.91 M/mm3 (3.65-5.03); Red Cell Distribution Width 14.8 % (13.2-15.2)
[2020-04-28] MEDS ORDERED: PROMETHAZINE 25 MG RECT SUPP PR PRN (00:21)
[2020-04-28] MEDS ORDERED: PROMETHAZINE 25 MG TAB PO PRN (00:21)
[2020-04-28] MEDS ORDERED: LANOLIN/ZINC/DIMETHICONE (LANSINOH) 7 GM TP PRN ×2 (00:21)
[2020-04-28] MEDS ORDERED: diphenhydrAMINE 25 MG CAP PO PRN (00:21)
[2020-04-28] MEDS ORDERED: OXYTOCIN 20 UNIT/1000ML DRIP 20 UNITS/1,000 ML BAG IV SCH (00:21)
[2020-04-28] MEDS ORDERED: BENZOCAINE/MENTHOL 20/0.5% TOP SPRAY 56 GM TP PRN (00:21)
[2020-04-28] MEDS ORDERED: HYDROcodone/ACETAMINOPHEN 5-325 MG TAB PO PRN (00:21)
[2020-04-28] MEDS ORDERED: MAGNESIUM HYDROXIDE (MOM) ORAL LIQD UDC PO PRN (00:21)
[2020-04-28] MEDS ORDERED: WITCH HAZEL/ GLYCERIN PAD TP PRN (00:21)
[2020-04-28] MEDS ORDERED: ACETAMINOPHEN 325 MG TAB PO PRN (00:21)
[2020-04-28] MEDS ORDERED: ONDANSETRON 4 MG/2 ML INJ IV PRN (00:21)
[2020-04-28] MEDS: FERROUS SULFATE 325 MG TAB PO SCH ×2 (00:35→09:39)
[2020-04-28] MEDS: IBUPROFEN 600 MG TAB PO SCH ×3 (00:36→19:20)
[2020-04-28 13:59] LABS: Hematocrit 23.2 % (30.3-42.9); Hemoglobin 7.8 gm/dl (10.1-14.3)
[2020-04-28] MEDS ORDERED: MEASLES, MUMPS & RUBELLA 12,500 UNIT/0.5 ML VACCINE SUB-Q ONE (21:31)
[2020-04-29] MEDS: IBUPROFEN 600 MG TAB PO SCH ×2 (00:20→05:25)
[2020-04-29] MEDS: FERROUS SULFATE 325 MG TAB PO SCH ×2 (01:10→09:56)
[2020-04-29] MEDS ORDERED: DIPHtheria,PERTUSSIS(ACELL),TETANUS VACCINE/PF 0.5 ML VIAL IM ONE (06:00)
[2020-04-29 13:40] VITALS: BP 119/73
== END 2020-04-29 13:30 | disposition home or self-care (01) | DRG 775 ==
LOC: APU 08:30 → TRG 08:30 → LD 09:31 → OB 23:50
PROVIDERS: ADMIT Obstetrics & Gynecology; ATTEND Obstetrics & Gynecology
PROC: 10E0XZZ Delivery of Products of Conception, External Approach (ICD-10-PCS; principal; 2020-04-27)
PROC: 3E0234Z Introduction of Serum, Toxoid and Vaccine into Muscle, Percutaneous Approach (ICD-10-PCS; 2020-04-28)
PROC: 3E0134Z Introduction of Serum, Toxoid and Vaccine into Subcutaneous Tissue, Percutaneous Approach (ICD-10-PCS; 2020-04-29)
DX: O36.5930 Maternal care for other known or suspected poor fetal growth, third trimester, not applicable or unspecified (principal); Z3A.38 38 weeks gestation of pregnancy; Z37.0 Single live birth; O76 Abnormality in fetal heart rate and rhythm complicating labor and delivery; D64.9 Anemia, unspecified; O62.3 Precipitate labor; K21.9 Gastro-esophageal reflux disease without esophagitis; O99.62 Diseases of the digestive system complicating childbirth; O90.81 Anemia of the puerperium; Z23 Encounter for immunization
CPT/HCPCS: 36415; 59025; 76815; 76819; 80053; 82150; 83690; 85014; 85018; 85025; 85027; 85461; 86592; 86850; 86900; 86901; 88307; 90471; 90715; 96360; 96361; 96372; 96374; G0378; J2405; J2590; J2765; J2790; J3010; J7120